=== PATIENT | female | born 1975 | race Caucasian/White ===

== ENCOUNTER 2020-09-24 13:21 | Emergency (ER) | payer BC, SELFPAY ==
[2020-09-24] VITALS (10 sets, daily range): BP systolic 132–163; BP diastolic 71–100; PULSE 88–98; RESP 12–18; TEMP 36.7–36.8; O2SAT 99–100
--- NOTE | ~2020-09-24 | CT_ITS ---
EXAMINATION: CTA BRAIN/CAROTID DATE: 09/24/2020 16:09 INDICATION: Dizziness, lightheadedness and anxious TECHNIQUE: Computed tomographic angiography (CTA) of the head and neck was performed with 100 mL Omni paque-350 intravenous contrast. Multiplanar reconstructions and maximum intensity projection 3D-recon structions of the carotid arteries and of the intracranial arteries were created by the technologist on a separate workstation. Precontrast CT of the head was also obtained. Automated exposure control and iterative reconstruction technique were employed.The dose-length product was 1515.42 mGy-cm. COMPARISON: None. FINDINGS: Carotid arteries: Normal aortic arch and great vessels arising from the arch. No atherosclerotic plaque was 0% stenosis of the left and right carotid bulbs relative to normal distal artery lumen diameter (NASCET criteria ). Cervical soft tissues and visualized upper lungs are unremarkable. 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 Head: No acute intracranial hemorrhage, acute infarction or abnormal extra axial fluid collection. Ventricl es are normal and symmetric. No mass/mass effect. The orbits, paranasal sinuses and mastoid air cells are normal. No abnormally enhancing brain lesions. Intracranial arteries There is no hemodynamically significant stenosis in the vertebral, basilar and internal carotid arter ies. Vertebral arteries are codominant. There are no aneurysms identified. Both A1 and P1 segments a re patent. There are also a patent anterior communicating and left posterior communicating arteries. Cerebral arterial arborization appears symmetric. IMPRESSION: 1. Normal brain. No acute intracranial process. 2. No evident atherosclerotic plaque with 0% stenosis of the left and right carotid bulbs relative to normal distal artery lumen diameter (NASCET criteria). 3. Normal cerebral angiogram. Reviewed, dictated and finalized at location A. OR SOFTWARE QUALITY ENGINEER IMPRESSION: 1. Normal brain. No acute intracranial process. 2. No evident atherosclerotic plaque with 0% stenosis of the left and right car otid bulbs relative to normal distal artery lumen diameter (NASCET criteria). 3. Normal cerebral angiogram.
--- NOTE | ~2020-09-24 | XR_ITS ---
EXAMINATION: XR chest 2V DATE: 09/24/2020 14:12 INDICATION: Heart palpitations and weakness TECHNIQUE: PA and lateral views of the chest are obtained. COMPARISON: None available FINDINGS: The lungs are free of acute opacities. There is no pleural effusion or pneumothorax. The ca rdiomediastinal silhouette is normal. There is levocurvature of the upper lumbar spine. IMPRESSION: 1. No acute cardiopulmonary abnormality. Reviewed, dictated and finalized at location A. TOR TRAILER TRUCK DRIVER
--- NOTE | 2020-09-24 13:29 | ECG_ITS ---
Measurements Intervals [place] Rate: 102 P: 67 DC: 135 QRS: 55 QRSD: 84 T: -4 QT: 358 QTc: 468 Interpretive Statements SINUS TACHYCARDIA NONSPECIFIC ST & T-WAVE ABNORMALITY- ANT/INF LEADS BORDERLINE ECG Electronically Signed On 09-24-2020 14:10:13 CLOTH FINISHER by Indra Forbes D.O.
[2020-09-24 13:40] LABS: Basophils Percent Auto 0.3 % (0.2-1.2); Eosinophils Percent Auto 0.1 % (0-4.4); Hematocrit 45.4 % (37.0-47.0); Hemoglobin 15.6 g/dL (12.0-15.0); Immature Granulocyte Absolute 0.01 K/mm3 (0.00-0.031); Immature Granulocyte Percent A 0.1 % (0-0.5); Lymphocytes Absolute Auto 1.07 K/mm3 (0.9-3.2); Mean Corpuscular HGB Conc 34.4 g/dl (32-36); Mean Corpuscular Hemoglobin 31.3 pg (26-34); Mean Platelet Volume 8.4 fl (7.4-10.4); Monocytes Absolute Auto 0.5 K/mm3 (0.1-0.6); Monocytes Percent Auto 6.4 % (2.6-8.5); Neutrophils Percent Auto 79.1 % (45.5-73.1); Platelet Count Result 394 k/mm3 (150-375); Red Blood Count 4.99 M/mm3 (4.2-5.4); Red Cell Distribution Width 12.5 % (11.5-14.5); White Blood Count 7.6 K/mm3 (4.5-10.0)
[2020-09-24 13:49] LABS: INR 0.9; Prothrombin Time 12.8 Seconds (11.1-14.7)
[2020-09-24 13:50] LABS: Partial Thromboplastin Time 27.1 SECONDS (22.3-36.8)
[2020-09-24 13:54] LABS: Anion Gap 9 mmol/L (8-16); Blood Urea Nitrogen 11 mg/dL (7-17); Calcium 9.5 mg/dL (8.4-10.2); Carbon Dioxide 27 mmol/L (22-30); Chloride 105 mmol/L (98-107); Estimated CRCL calculation 85 ml/min; Estimated Glomerular Filt Rate > 60; Glucose 112 mg/dL (65-105); Potassium 3.9 mmol/L (3.4-5.0); Sodium 141 mmol/L (137-145)
[2020-09-24 14:05] LABS: Troponin I < 0.012 ng/mL (0.000-0.034)
[2020-09-24] MEDS: SODIUM CHLORIDE 0.9% IV 1,000 ML 999 ML IV CONT (15:26)
[2020-09-24] MEDS: LORazepam INJ (*CRX) 2 MG/ML VIAL 0.5 MG IV PUSH (15:26)
--- NOTE | 2020-09-24 15:29 | ED.GENADULT ---
HPI - General Adult General Chief complaint: Arrhythmia/Palpitations Stated complaint: palpitations Time Seen by Provider: 09/24/20 14:21 Source: patient Mode of arrival: ambulatory Limitations: no limitations History of Present Illness HPI narrative: Patient is a 45-year-old female who presents to emergency department for evaluation of feeling as though her speech was not clear with confusion that began this morning patient was up all night with concern over structural issues with her home lives with a partner at home who notes that she was very anxious and worried about the structural foundation issues involving her home along with other things that have had her not sleeping well for the last 3 days patient on arrival is very tearful noting that she had chest heaviness and unclear speech and confusion this morning as noted patient had a neighbor came over who had difficulty calming her down. On arrival patient does not appear uncomfortable or distressed. Patient has not taken anything for symptoms patient denies similar occurrence in the past. Related Data Allergies Allergy/AdvReac Type Severity Reaction Status Date / Time No Known Allergies Allergy Verified 09/24/20 15:06 Review of Systems Review of Systems: All systems reviewed & are unremarkable except as noted in HPI and below PMFSH Social History Social History (Updated 09/24/20 @ 15:31 by Yair Wilson PA-C) Smoking status: Never smoker Exam Narrative: Exam Narrative: GENERAL: Well-appearing, well-nourished, and in no acute distress. HEAD: Normocephalic, atraumatic. EYES: PERRLA and EOMI. ENT: Nares clear, no rhinorrhea or epistaxis. Mucous membranes moist. NECK: Supple. No adenopathy or masses. No carotid bruits or JVD CHEST: Clear to auscultation. No respiratory distress. No wheezes rales or rhonchi HEART: Regular rate and rhythm. No murmur heard. Normal peripheral pulses. ABDOMEN: Soft, nontender, nondistended EXTREMITIES: Normal range of motion. No edema. SKIN: Warm, dry, no rash. NEURO: No focal deficits. Alert and oriented x3. Cranial nerves II through XII grossly intact. Normal speech. Cerebellar intact. Motor and sensory intact and symmetrical in the extremities. PSYCH: Normal mood and affect. Course Course Emergency Course: Patient in the room at this time aware of case findings treatment plan diagnosis feeling much better will be discharged home no high risk changes in the blood work or imaging patient's evaluation with concern for acute coronary syndrome or stroke after evaluation is felt that this is unlikely likely a stress reaction patient will follow with primary care Vital Signs Vital signs: Vital Signs Temperature 98.1 F 09/24/20 13:29 Pulse Rate 98 09/24/20 13:29 Respiratory Rate 18 09/24/20 13:29 Blood Pressure 132/93 H 09/24/20 13:29 Pulse Oximetry 100 09/24/20 13:29 Temperature 98.2 F 09/24/20 15:00 Pulse Rate 88 09/24/20 16:17 Respiratory Rate 18 09/24/20 16:17 Blood Pressure 140/71 09/24/20 16:17 Pulse Oximetry 100 09/24/20 16:17 Medical Decision Making MDM Narrative Medical decision making narrative: Patient in the room at this time aware of case findings treatment plan diagnosis agreeing to follow-up as directed or to return if symptoms worsen or concerns. Patients EKGs and labs are without significant high risk changes. Cardiac risk factors were reviewed. Patient is felt likely to be low risk for ACS and reasonable for further risk stratification testing as an outpatient. Pain was not sudden or maximal in onset without tearing or ripping. No other signs or symptoms to suggest aortic dissection. A low-risk Wells criteria is noted. PE is felt to be unlikely. No pneumonia or URI symptoms were seen on evaluation today. No focal neurologic deficits on exam. patient is felt to b reasonable for continued evaluation as an outpatient. Vital Signs Vital Signs: Vital Signs Temperature 98.
[2020-09-24 16:55] LABS: Troponin I < 0.012 ng/mL (0.000-0.034)
== END 2020-09-24 18:37 | disposition home or self-care (01) ==
PROVIDERS: Emergency Medicine; Emergency Provider Emergency Medicine
DX: R00.2 Palpitations (principal); R00.0 Tachycardia, unspecified; R94.31 Abnormal electrocardiogram [ECG] [EKG]
CPT/HCPCS: 36415; 70496; 70498; 71046; 80048; 84484; 85025; 85610; 85730; 93005; 96361; 96374; 99284; J2060; J7030; Q9967